=== PATIENT | female | born 1970 | race Hispanic/Latino ===

== ENCOUNTER 2020-02-29 22:41 | Emergency (ER) | payer OTHER ==
[~2020-02-29] VITALS: Ht 160 cm; Wt 69.4 kg
--- OUTSIDE RECORDS SUMMARY | 2020-02-29 22:43 | XMS REPORT | Clinical Summary ---
Author Author [facility] Organization [facility] Address Unknown Phone Unavailable Care Team Providers Care Severity Of Illness Coordinator Name Role Phone Chayito Ceballos MD PCP Allergies No Known Allergies Medications End Date Status Medication Sig Dispensed Refills Start Date Active temazepam (RESTORIL) 15 Take 15 mg by 0 mg capsule mouth nightly. For sleep Active Problems Problem Noted Date Open wound of right breast with complication 017 Infection of right breast implant 01/23/2017 Overview: Patient had bilateral saline to silicon e breast implant exchange with periareolar mastopexy and abdominoplast y performed in [place] in November 2016. Surgical wound infection 01/22/2017 Infected surgical wound 12/16/2016 Immunizations Name Administration Dates Next Due FLUZONE QUAD PF 12/18/2016 Social History Date Tobacco Use Types Packs/Day Years Used Never Smoker Drinks/Week oz/Week Comments Alcohol Use No Sex Assigned at Date Recorded Not on file Industry Job Start Date Occupation Not on file Not on file Not on file Travel End Travel History Travel Start No recent travel history available. 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
--- OUTSIDE RECORDS SUMMARY | 2020-02-29 22:43 | XMS REPORT ---
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 Need for p rophylactic vaccination with unspecified combined vaccine Medication List Medication Instructions Start Date Stop Date Generic Name NDC Status Provider Patient Instruction Drug Treatment Unknown - unknown Immunizations Vaccine Administration Date Value Standard Floyd cription dT (Diphtheria and Tetanus) immunization for children, #1 06/10 given Td(adult) unspecified formulation Vital Signs Date Name Value Unit Range Description blood pressure, diastolic 90 mm[Hg] BP villa blood pressure, systolic 150 mm[Hg] BP sys pulse rate E&M 59 /min Heart rate respiratory rate E&M 20 /min Resp rate temperature E&M 98.3 [degF] Body temp erature Encounters Date Encounter Provider Code Facility 17:05:17 CDT Est Patient Nurse - Only Visit - 992 11 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
--- OUTSIDE RECORDS SUMMARY | 2020-02-29 22:44 | XMS REPORT ---
Author Author [facility] t Organization [facility] Address [address] [place] [address] Phone Unavailable Care Team Providers Care Senior Tax Manager Name Role Phone Velvet LAMB DO PCP GAGAN MARIN Attphys Unavailable Payers Payer Name Policy Type Policy Number Effective Date Expiration Date Jackie scott [facility] [id number] 2017 00:00:00 [facility] [id number] 2017 00:00:00 [facility] Problems Condition Name Condition Details Condition Category Status Onset Date Resolution Date Last Treatment Date Treating Clinician Comments Source Open wound of right breast with complication Open woun d of right breast with complication Disease Active 2017-01-23 00:00:00 Braydon Muhammad Infection of right breast implant Infection of right breast impl ant Disease Active 2017-01-23 00:00:00 Overview : Patient had bilateral saline to silicone breast implant exchange with periareolar mastopexy and abdominoplasty performed in [place] in November 2016. Braydon Muhammad Surgical wound infection Surgical wound infection Disease Acti ve 2017-01-22 00:00:[address] Infected surgical wound Infected surgical wound Disease Active 2016-12-16 00:00:[address] Allergies, Adverse Reactions, Alerts Allergy Name Allergy Type Status Severity Reaction(s) Onset Date Inacti ve Date Treating Clinician Comments Source No Known Allergies DA Active U 2019-08-11 00:00:00 [facility] No Known Allergies DA Active U 2018-12-31 00:00:00 [facility] No Known Allergies DA Active U 2018-05-01 00:00:00 [facility] No Known Contrast Allergies DA Active U 2008-03-10 00:00: 00 [facility] No Known Drug Allergies DA Active U 2008-03-10 00:00:00 [facility] No Known Food Allergies DA Active U 2008-03-10 00:00:00 [facility] No Known Other Allergies DA Active U 2008-03-10 00:00:00 [facility] Social History Social Habit Start Date Stop Date Quantity Comments Source Sex Assigned At Kaylin lee [facility] Alcohol intake 2017-01-28 00:00:00 2017-01-28 00:00:00 Current non-drinker of alcohol (finding) Braydon Muhammad Smoking Status Start Date Stop Date Source Never smoker Braydon Ramon t Medications Ordered Medication Name Filled Medication Name Start Date Stop Da te Current Medication? Ordering Clinician Indication Dosage Frequency Signature (SIG) Comments Components Source temazepam (RESTORIL) 15 mg capsule 2017-03-25 14:08:44 Yes 15mg QD Take 15 mg by mouth nightly. For sleep Maurisio Muhammad Immunizations Ordered Immunization Name Filled Immunization Name Date Status Comments Source FLUZONE QUAD PF 2016-12-18 00:00:00 Completed Bryson [facility] Procedures This patient has no known procedures. Plan of Care Planned Activity Planned Date Details Comments Source Future Scheduled Test 2020-05-14 00:00:00 INFLUENZA VACCINE [code = INFLUENZA VACCINE] [facility] Scheduled Test 2018 00:00:00 BREAST CANCER SCRE ENING [code = BREAST CANCER SCREENING] [facility] Scheduled Test 2018 00:00:00 COLONOSCOPY SCREEN ING [code = COLONOSCOPY SCREENING] [facility] Scheduled Test 2018 00:00:00 SHINGLES VACCINES (#1) [code = SHINGLES VACCINES (#1)] [facility] Scheduled Test 1989 00:00:00 Screening for orlin gnant neoplasm of cervix (procedure) [code = 140098587] [facility] Encounters Start Date/Time End Date/Time Encounter Type Admission Type Att[facility] Care Department Encounter ID Source 2019-12-09 22:06:00 2019-12-09 23:54:00 Departed Emergency Room 1 GAGAN MARIN [facility] [id number] [facility] 2018-12-31 18:40:00 2018-12-31 20:00:00 Departed Emergency Room [facility] [id number] [facility] 2018-05-01 04:23:00 2018-05-01 05:31:00 Departed Emergency Room [facility] [id number] [facility] Results Test Description Test Time Test Comments Results Result Comments Source KNEE LEFT THREE VIEWS 2019-12-09 23:21:00 [place] [address] Patient Name: CASTILLO HESTER MR #: [id number] : 1970 Age/Sex: 49/F Req #: [id number] Adm Physician: Ordered by: GAGAN MARIN DO Report #: [id number] Location: ER Room/Bed: Procedure: [id number] DX/KNEE LEFT THREE VIEWS Exam Date: 12/09/19 Exam Time: 2305 REPORT STATUS: Signed Exam: Left knee 3 views History: Pain status post fall Comparison: None. Findings: No acute displaced fracture or dislocation. Joint spaces are well-maintained. No joint effusion. Soft tissues unremarkable. Impression: No acute osseous abnormality. Signed by: Dr. Talat Pineda M.D. on 12/09/2019 11:22 PM Dictated By: TALAT PINEDA MD 21 Transcribed By: ALIREZA on 12/09/192321 COPY TO: GAGAN MARIN DO
[2020-02-29] MEDS ORDERED: SODIUM CHLORIDE 0.9% 1000ML 1,000 ML IV STA (23:45)
[2020-02-29] MEDS ORDERED: MORPHINE SULFATE INJ 4 MG/ML INJ 1ML IV ONE (23:45)
[2020-02-29] MEDS ORDERED: ONDANSETRON HCL INJ 2MG/ML 2ML 2 MG/ML VIAL IV STA (23:45)
[2020-02-29] MEDS ORDERED: CLINDAMYCIN PHOS 900MG/ 50ML 50 ML IV STA (23:45)
[2020-03-01 00:37] LABS: BASOPHILS % 0.4 % (0.0-1.0); EOSINOPHILS # (AUTO) 0.1 (0.0-0.4); EOSINOPHILS % 1.3 % (0.0-6.0); HEMATOCRIT 37.2 % (34.2-44.1); HEMOGLOBIN 11.3 g/dL (12.0-16.0); LYMPHOCYTES # (AUTO) 1.5 (1.0-3.2); MEAN CORPUSCULAR HEMOGLOBIN 23.3 pg (28-32); MEAN CORPUSCULAR HGB CONC 30.4 g/dL (31-35); MEAN CORPUSCULAR VOLUME 76.7 fL (81-99); MONOCYTES # (AUTO) 0.6 (0.2-0.8); MONOCYTES % 6.2 % (4.4-11.3); NEUTROPHILS # (AUTO) 6.8 (2.1-6.9); NEUTROPHILS % 75.8 % (38.7-80.0); PLATELET COUNT 189 x10e3/uL (140-360); RED BLOOD COUNT 4.85 x10e6/uL (3.6-5.1); RED CELL DISTRIBUTION WIDTH 16.3 % (11.7-14.4)
[2020-03-01 00:58] LABS: ALBUMIN 4.1 g/dL (3.5-5.0)
[2020-03-01 01:05] LABS: ALANINE AMINOTRANSFERASE 19 IU/L (0-55); ALKALINE PHOSPHATASE 69 IU/L (40-150); ANION GAP 16.7 mmol/L (8-16); BLOOD UREA NITROGEN 10 mg/dL (7-26); BUN/CREATININE RATIO 13 (6-25); CALCIUM 9.1 mg/dL (8.4-10.2); CARBON DIOXIDE 23 mmol/L (22-29); CHLORIDE 104 mmol/L (98-107); CREATININE, SERUM 0.75 mg/dL (0.57-1.11); EST GLOMERULAR FILTRATION RATE > 60 ML/MIN (60-); GLUCOSE 98 mg/dL (74-118); POTASSIUM 3.7 mmol/L (3.5-5.1); SODIUM 140 mmol/L (136-145)
[2020-03-01] MEDS ORDERED: SODIUM CHLORIDE 0.9% 50ML 50 ML ONE (01:19)
[2020-03-01] MEDS ORDERED: IOPAMIDOL 370 MG/ML 200 ML INFUS..BTL INJ ONE (01:19)
--- NOTE | 2020-03-01 01:50 | Emergency Department Note ---
History of Present Illnes History of Present Illness Chief Complaint: Eye, Ear, Nose, Throat, Dental History of Present Illness This is a 49 year old female arrived to the ED with several day history of right ear pain. 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 Historian: Patient Arrival Mode: Car Onset (how long ago): day(s) Severity: moderate Timing of current episode: constant Progression: worsening Context: trauma/injury Relieving factors: none Exacerbating factors: none Associated symptoms: fever/chills Past Medical/Family History Physician Review I have reviewed the patient's past medical and family history. Any updates have been documented here. Past Medical History Recent Fever: Yes Clinical Suspicion of Infectio: Yes New/Unexplained Change in Ment: No Past Surgical History: None Social History Smoking Cessation: Never Smoker Alcohol Use: Occasional Any Illegal Drug Use: No TB Exposure/Symptoms: No Physically hurt or threatened: No Family History Family history of heart diseas: No Other Last Tetanus: UTD Any Pre-Existing Lines (PICC,: No Is patient up to date on immun: Yes Last Flu: UTD Last Pneumovax: UTD Review of Systems Review of Systems Constitutional: no symptoms, fever, other (skin infection ) EENTM: no symptoms Cardiovascular: no symptoms Respiratory: no symptoms Gastrointestinal: no symptoms Genitourinary: no symptoms Musculoskeletal: no symptoms Neurological: no symptoms Psychological: no symptoms Endocrine: no symptoms Hematological/Lymphatic: no symptoms Review of other systems All other systems reviewed and negative. Physical Exam Related Data Allergies: Coded Allergies: No Known Allergies (Unverified , 02/29/20) Triage Vital Signs Vital Signs Date Time Temp Pulse Resp B/P (MAP) Pulse Ox O2 Delivery O2 Flow Rate FiO2 02/29/20 23:27 100.2 92 20 204/130 100 Vital signs reviewed: Yes Physical Exam CONSTITUTIONAL Constitutional: well-developed, well-nourished HENT HENT L/R: left TM normal, left canal normal; right canal normal (marked redness over ), right ext ear normal (marked erythema noted over right ear helix, +lymphadenopathy posterioraly ) EYES NECK PULMONARY CARDIOVASCULAR GASTROINTESTINAL GENITOURINARY SKIN MUSCULOSKELETAL NEUROLOGICAL PSYCHOLOGICAL Results Laboratory Result Diagram: 03/01/20 0020 03/01/20 0020 Laboratory Laboratory Tests Test 03/01/20 00:20 White Blood Count 9.04 x10e3/uL (4.8-10.8) Red Blood Count 4.85 x10e6/uL (3.6-5.1) Hemoglobin 11.3 g/dL (12.0-16.0) Hematocrit 37.2 % (34.2-44.1) Mean Corpuscular Volume 76.7 fL (81-99) Mean Corpuscular Hemoglobin 23.3 pg (28-32) Mean Corpuscular Hemoglobin Concent 30.4 g/dL (31-35) Red Cell Distribution Width 16.3 % (11.7-14.4) Platelet Count 189 x10e3/uL (140-360) Neutrophils (%) (Auto) 75.8 % (38.7-80.0) Lymphocytes (%) (Auto) 16.0 % (18.0-39.1) Monocytes (%) (Auto) 6.2 % (4.4-11.3) Eosinophils (%) (Auto) 1.3 % (0.0-6.0) Basophils (%) (Auto) 0.4 % (0.0-1.0) Neutrophils # (Auto) 6.8 (2.1-6.9) Lymphocytes # (Auto) 1.5 (1.0-3.2) Monocytes # (Auto) 0.6 (0.2-0.8) Eosinophils # (Auto) 0.1 (0.0-0.4) Basophils # (Auto) 0.0 (0.0-0.1) Absolute Immature Granulocyte (auto 0.03 x10e3/uL (0-0.1) Sodium Level 140 mmol/L (136-145) Potassium Level 3.7 mmol/L (3.5-5.1) Chloride Level 104 mmol/L (98-107) Carbon Dioxide Level 23 mmol/L (22-29) Anion Gap 16.7 mmol/L (8-16) Blood Urea Nitrogen 10 mg/dL (7-26) Creatinine 0.75 mg/dL (0.57-1.11) Estimat Glomerular Filtration Rate > 60 ML/MIN (60-) BUN/Creatinine Ratio 13 (6-25) Glucose Level 98 mg/dL (74-118) Calcium Level 9.1 mg/dL (8.4-10.2) Total Bilirubin 0.3 mg/dL (0.2-1.2) Aspartate Amino Transf (AST/SGOT) 29 IU/L (5-34) Alanine Aminotransferase (ALT/SGPT) 19 IU/L (0-55) Alkaline Phosphatase 69 IU/L (40-150) Total Protein 8.4 g/dL (6.5-8.1) Albumin 4.1 g/dL (3.5-5.0) Globulin 4.2 g/dL (2.3-3.5) Albumin/Globulin Ratio 1.0 (0.8-2.0) Lab results reviewed: Yes Imaging Imaging results reviewed: Yes Impressions IMPRESSION: 1. No acute facial abnormality with normal appearance of the bilateral external auditory canal. Signed by: DR Tomas Hurtado M.D. on 03/01/2020 2:04 AM Critical Care Time Subsequent provider I assumed direction of critical care for this patient from another provider of my specialty. Assessment & Plan Assessment & Plan Problems: (1) Cellulitis of ear Assessment & Plan cbc, cmp clindamycin CT Maxillofacial Reassessment Reassessment time: 02:30 Reassessment Pt re-evaluated, feels better- pt dc-ed home with antibiotics Depart Disposition: HOME, SELF-CARE Last Vital Signs Date Time Temp Pulse Resp B/P (MAP) Pulse Ox O2 Delivery O2 Flow Rate FiO2 03/01/20 00:37 75 18 151/102 100 02/29/20 23:27 100.2 Home Meds Active Scripts Tramadol Hcl (ULTRAM) 50 Mg Tablet, 50 MG PO Q6HR PRN for Mild Pain (1-3) or Fever>100.8, #12 TAB Prov:GAGAN MARIN DO 03/01/20 Clindamycin Hcl (CLINDAMYCIN HCL) 300 Mg Capsule, 300 MG PO Q6HR, #40 Prov:GAGAN AMRIN DO 03/01/20 Medications in the ED Clindamycin Phosphate 50 ml @ 50 mls/hr NOW STAT IV Last administered on 03/01/20at 00:34; Admin Dose 50 MLS/HR; Start 02/29/20 at 23:45; Stop 03/01/20 at 00:44 Sodium Chloride 1,000 ml @ 0 mls/hr Q0M STAT IV Last administered on 03/01/20at 00:34; Admin Dose 999 MLS/HR; Start 02/29/20 at 23:45; Stop 02/29/20 at 23:46 Morphine Sulfate 6 mg ONCE ONCE IV Last administered on 03/01/20at 00:25; Admin Dose 6 MG; Start 02/29/20 at 23:45; Stop 02/29/20 at 23:46 Ondansetron HCl 4 mg NOW STAT IV Last administered on 03/01/20at 00:25; Admin Dose 4 MG; Start 02/29/20 at 23:45; Stop 02/29/20 at 23:46 Sodium Chloride 50 ml @ ud STK-MED ONCE .ROUTE ; Start 03/01/20 at 01:19; Stop 03/01/20 at 01:13; Status DC Iopamidol 74,000 mg STK-MED ONCE INJ ; Start 03/01/20 at 01:19; Stop 03/01/20 at 01:14; Status DC GAGAN MARIN DO March 01, 2020 01:50
--- NOTE | 2020-03-01 02:07 | Diagnostic Imaging Report ---
History:Right ear infection and pain Comparison studies: None Technique: Axial images were obtained through the facial region. Coronal and sagittal images reconstructed from the axial data. Intravenous contrast: 100 cc of Omnipaque 300. Dose modulation, iterative reconstruction, and/or weight based adjustment of the mA/kV was utilized to reduce the radiation dose to as low as reasonably achievable. Findings: Soft tissues: No abnormalities. Bones: No fractures or bony abnormalities. Orbits: Globes: Intact. Extra or intraconal abnormalities: None. Paranasal sinuses: Clear. Functional sinus endoscopic surgery changes. Normal symmetric appearance of the bilateral external auditory canals, which are patent. The mastoid air cells and middle ear are clear. IMPRESSION: 1. No acute facial abnormality with normal appearance of the bilateral external auditory canal. Signed by: DR Tomas Hurtado M.D. on 03/01/2020 2:04 AM
[2020-03-01] MEDS ORDERED: ULTRAM50 MG PO (02:38)
[2020-03-01] MEDS ORDERED: CLINDAMYCIN HC300 MG PO (02:38)
== END 2020-03-01 03:46 | disposition home or self-care (01) ==
LOC: ER 22:41
DX: H60.11 Cellulitis of right external ear (principal); W22.8XXA Striking against or struck by other objects, initial encounter; Y92.513 Shop (commercial) as the place of occurrence of the external cause
CPT/HCPCS: 36415; 70487; 80053; 85025; 96374; 96375; 99284; J2270; J2405; J7030; Q9967